=== PATIENT | male | born 1965 | race Asian ===

== ENCOUNTER 2018-05-05 07:55 | Day surgery (SDC) | payer OTHER ==
[2018-05-05] MEDS ORDERED: LACTATED RINGERS 1,000 ML IV ONE (08:40)
[2018-05-05] MEDS ORDERED: MIDAZOLAM 2 MG/2 ML VIAL IVP ONE (09:36)
[2018-05-05] MEDS ORDERED: fentaNYL 250 MCG/5 ML VIAL IVP ONE (09:36)
[2018-05-05 09:55] VITALS: BP 104/70
== END 2018-05-05 07:56 | disposition home or self-care (01) ==
LOC: SDS 07:55
PROVIDERS: ATTEND Surgery
PROC: 0DBN8ZZ Excision of Sigmoid Colon, Via Natural or Artificial Opening Endoscopic (ICD-10-PCS; principal; 2018-05-05 09:00)
DX: Z12.11 Encounter for screening for malignant neoplasm of colon (principal); D12.5 Benign neoplasm of sigmoid colon; K64.8 Other hemorrhoids; Z86.010 Personal history of colon polyps; I10 Essential (primary) hypertension; E11.9 Type 2 diabetes mellitus without complications; Z79.84 Long term (current) use of oral hypoglycemic drugs; Z87.891 Personal history of nicotine dependence
CPT/HCPCS: 45380; J3010; J7120

== ENCOUNTER 2018-12-10 07:15 | Outpatient (CLI) | payer OTHER ==
[2018-12-10 13:21] LABS: BASOPHILS # (AUTO) 0.1 10^3/uL (0.0-0.1); EOSINOPHILS # (AUTO) 0.3 10^3/uL (0.0-0.7); HGB - HEMOGLOBIN 13.5 g/dL (14.0-18.0); LYMPHOCYTES # (AUTO) 1.7 10^3/uL (1.5-3.5); LYMPHOCYTES % (AUTO) 30.1 %; MEAN CORPUSCULAR HEMOGLOBIN 30.6 pg (27.0-31.0); MEAN CORPUSCULAR HGB CONC 32.7 g/dL (32.0-36.0); MEAN CORPUSCULAR VOLUME 93.6 fL (80.0-94.0); MEAN PLATELET VOLUME 8.5 fL (7.4-11.4); MONOCYTES # (AUTO) 0.4 10^3/uL (0.0-1.0); MONOCYTES % (AUTO) 7.3 %; NEUTROPHILS # (AUTO) 3.1 10^3/uL (1.5-6.6); NEUTROPHILS % (AUTO) 54.6 %; PLT - PLATELET COUNT 246 10^3/uL (130-450); RED BLOOD COUNT 4.41 10^6/uL (4.70-6.10); WHITE BLOOD COUNT 5.7 x10^3/uL (4.8-10.8)
[2018-12-10 13:58] LABS: ALBUMIN 4.4 g/dL (3.2-5.5); ALBUMIN/GLOBULIN RATIO 1.3 (1.0-2.2); ALKALINE PHOSPHATASE 62 IU/L (42-121); ALT ALANINE AMINOTRANSFERASE 62 IU/L (10-60); AST ASPARTATE AMINOTRANSFERASE 41 IU/L (10-42); BILIRUBIN,TOTAL 0.8 mg/dL (0.2-1.0); BUN - BLOOD UREA NITROGEN 16 mg/dL (6-20); CALCIUM 9.4 mg/dL (8.5-10.3); CARBON DIOXIDE - CO2 25 mmol/L (21-32); CHLORIDE 104 mmol/L (101-111); CHOL/HDL RATIO 2.5 (<5.0); CHOLESTEROL 119 mg/dL; GFR - MDRD 78 (>89); GLUCOSE 142 mg/dL (70-100); HDL CHOLESTEROL 47 mg/dL; LDL CHOLESTEROL,CALCULATED 51 mg/dL; LDL/HDL RATIO 1.1 (<3.6); SODIUM 139 mmol/L (135-145); TOTAL PROTEIN 7.9 g/dL (6.7-8.2); VLDL CHOLESTEROL 21 mg/dL
[2018-12-10 14:36] LABS: HB2 TOTAL 14.6 g/dL; HEMOGLOBIN A1C 0.73 g/dL; HEMOGLOBIN A1C % 6.7 % (4.6-6.2)
== END 2018-12-10 07:16 | disposition home or self-care (01) ==
LOC: LAB.WCP 07:15
PROVIDERS: ATTEND Family Medicine
DX: I10 Essential (primary) hypertension (principal); E11.9 Type 2 diabetes mellitus without complications; Z12.5 Encounter for screening for malignant neoplasm of prostate
CPT/HCPCS: 36415; 80053; 80061; 82043; 83036; 83721; 84153; 85025

== ENCOUNTER 2019-06-22 08:00 | Outpatient (CLI) | payer OTHER ==
[2019-06-22 14:51] LABS: ALBUMIN 3.7 g/dL (3.2-5.5); ALBUMIN/GLOBULIN RATIO 0.8 (1.0-2.2); BILIRUBIN,TOTAL 0.4 mg/dL (0.2-1.0); CALCIUM 8.8 mg/dL (8.5-10.3); CREATININE 1.1 mg/dL (0.6-1.2); TOTAL PROTEIN 8.2 g/dL (6.7-8.2)
[2019-06-22 15:25] LABS: HB2 TOTAL 12.7 g/dL; HEMOGLOBIN A1C 0.62 g/dL; HEMOGLOBIN A1C % 6.6 % (4.6-6.2)
== END 2019-06-22 23:59 | disposition home or self-care (01) ==
LOC: LAB.WCP 08:00
PROVIDERS: ATTEND Family Medicine
DX: E11.9 Type 2 diabetes mellitus without complications (principal); D12.6 Benign neoplasm of colon, unspecified; L30.9 Dermatitis, unspecified
CPT/HCPCS: 36415; 80053; 83036

== ENCOUNTER 2019-07-27 05:51 | Day surgery (SDC) | payer OTHER ==
[2019-07-27] MEDS ORDERED: LACTATED RINGERS 1,000 ML IV ONE ×2 (06:27→08:58)
[2019-07-27] MEDS ORDERED: ceFAZolin 1 GM VIAL ONE (06:34)
[2019-07-27] MEDS ORDERED: BACITRACIN ZINC OINT 1 PACKET TOP ONE (06:55)
[2019-07-27] MEDS ORDERED: LIDOCAINE 1%-EPI 1:100000 20 ML MDV ONE (06:56)
[2019-07-27] MEDS ORDERED: BUPIVACAINE 0.5% PF 30 ML VIAL ONE (06:56)
--- NOTE | 2019-07-27 07:13 | ANESTHESIA ---
Pre-Anesthesia VS, & Labs - Diagnosis right visual changes and elevated ESR - Procedure right temporal artery biopsy Vital Signs: Temp Pulse Resp BP Pulse Ox 36.3 C L 74 16 109/81 H 100 07/27/19 06:28 07/27/19 06:28 07/27/19 06:28 07/27/19 06:28 07/27/19 06:28 Height 5 ft 7 in Weight (kg) 77.6 kg - NPO >8 hours - Lab Results Current Lab Results: Laboratory Tests 07/27/19 06:42: POC Whole Bld Glucose 140 H Home Medications and Allergies Losartan/Hydrochlorothiazide [Losartan-Hctz 50-12.5 mg Tab] 1 each PO 03/19/13 glipiZIDE [Glucotrol] 5 mg PO 0730 03/19/13 metFORMIN [Glucophage] 850 mg PO TIDWM 03/19/13 Allergies/Adverse Reactions: Allergies Allergy/AdvReac Type Severity Reaction Status Date / Time No Known Drug Allergies Allergy Verified 03/19/13 13:38 Anes History & Medical History - Anesthetic History Family history of Anesthesia Complications: Denies Family history of Malignant Hyperthermia: Denies - Medical History Cardiovascular: reports: Hypertension Pulmonary: reports: None Gastrointestinal: reports: None Urinary: reports: None Neuro: reports: None Musculoskeletal: reports: None Endocrine/Autoimmune: reports: Type 2 diabetes Blood Disorders: reports: None Skin: reports: None Smoking Status: Former smoker Psychosocial: reports: No issues indicated - Surgical History General: Colonoscopy Exam General: Alert, Oriented x3, Cooperative, No acute distress Dental: Dentures full Upper Mouth Openin Fingerbreadth Neck Mobility: Normal Mallampati classification: II Thyromental Distance: greater than 6 cm Respiratory: Lungs clear, Normal breath sounds, No respiratory distress, No accessory muscle use Cardiovascular: Regular rate, Normal S1, Normal S2, No murmurs Mental/Cognitive Status: Alert/Oriented X3, Normal for patient Plan Anesthesia Type: MAC Consent for Procedure(s) Verified and Reviewed: Yes Code Status: Attempt Resuscitation ASA classification: 2-Mild systemic disease Is this case an emergency?: No
[2019-07-27] MEDS ORDERED: PROPOFOL 200 MG/20 ML VIAL IVP ONE (07:52)
[2019-07-27] MEDS ORDERED: fentaNYL 100 MCG/2 ML VIAL IVP ONE (07:52)
[2019-07-27] MEDS ORDERED: LIDOCAINE-MPF 2% 5 ML VIAL IM ONE (07:52)
[2019-07-27] MEDS ORDERED: MIDAZOLAM 2 MG/2 ML VIAL IVP ONE (07:52)
[2019-07-27] MEDS ORDERED: LIDOCAINE 1%-EPI 1:100000 20 ML MDV SUBQ ONE (08:16)
[2019-07-27] MEDS ORDERED: BUPIVACAINE 0.5% PF 30 ML VIAL INFIL ONE (08:17)
--- NOTE | 2019-07-27 09:04 | OPERATIVE REPORT ---
Operative Report - General Procedure Date: 07/27/19 Planned Procedure: Right temporal artery biopsy Pre-Op Diagnosis: Right temporal arteritis Procedure Performed: Right temporal artery biopsy Post Op Diagnosis: Right temporal artery biopsy - Procedure Note Primary Surgeon: Bebo Anesthesia Provider: SAMUEL Villagomez Anesthesia Technique: Local, MAC Pathology: Portion of right temporal artery to pathology IV Fluids (mL): 600 Estimated Blood Loss (mL): 3 Indications: Right temporal arteritis Findings: Thickened and abnormal artery densely adherent to surrounding structures Complications: None apparent - Other Other Information/Narrative: After obtaining informed consent, the patient is brought to the operating room and placed in the supine position on the operating table. Following successful MAC sedation, the right temporal region was prepped and draped in the standard surgical fashion. A timeout was held per scope protocol. All elements of the surgical safety checklist were followed before, during, and after the procedure. The temporal artery was identified lateral to the right eyebrow using a Doppler ultrasound. This was mapped and localized with anesthetic. An incision was created here and carried down through the skin and subcutaneous tissue. An overlying vein was easily identified but we were not able to identify the artery. Extensive searching with the Doppler was undertaken but we were not able to obtain a pulse again or identify clearly and artery. We opted to go back to the source of the artery and look laterally and were able to identify the cephalic branch of the right temporal artery in the patient's hairline on the right side. This area was anesthetized with a mixture of local anesthetics. An incision was created here. This was carried down through the skin and subcutaneous tissue. The artery was identified. It was grossly abnormal. It was densely adherent to surrounding structures it was very difficult to dissect free from the structures. Once we had verified with the Doppler again that it was in fact an artery, it was clipped once proximally once distally divided and a 1 cm segment was submitted for pathology. We were not able to obtain additional specimen due to the degree of fibrotic reaction. The wound was checked for hemostasis. It was closed with a Monocryl suture and Dermabond was applied to the skin. The lower incision was also closed with Dermabond and Monocryl suture. All sponge, needle, and instrument counts were correct at the conclusion of the case. The patient was allowed to awaken from anesthesia and taken to the postanesthesia care unit in good condition.
[2019-07-27] MEDS ORDERED: ACETAMINOPHEN 325 MG TABLET PO ONE (09:20)
[2019-07-27] MEDS ORDERED: oxyCODONE 5 MG TABLET ONE (09:20)
[2019-07-27 10:09] VITALS: BP 106/75
== END 2019-07-27 05:52 | disposition home or self-care (01) ==
LOC: SDS 05:51
PROVIDERS: ATTEND Surgery
PROC: 03BS0ZX Excision of Right Temporal Artery, Open Approach, Diagnostic (ICD-10-PCS; principal; 2019-07-27 07:30)
DX: M31.6 Other giant cell arteritis (principal); H53.40 Unspecified visual field defects; R51 Headache; R70.0 Elevated erythrocyte sedimentation rate; I10 Essential (primary) hypertension; E11.9 Type 2 diabetes mellitus without complications; Z79.84 Long term (current) use of oral hypoglycemic drugs; Z87.891 Personal history of nicotine dependence
CPT/HCPCS: 37609; A9270; J7120

== ENCOUNTER 2019-07-28 09:10 | Outpatient (CLI) | payer OTHER | END 2019-07-28 23:59 | disposition home or self-care (01) | LOC: LAB.WCP 09:10 | PROVIDERS: ATTEND Family Medicine | DX: M31.6 Other giant cell arteritis (principal) | CPT/HCPCS: 36415; 85651 ==

== ENCOUNTER 2019-09-03 08:00 | Outpatient (CLI) | payer OTHER | END 2019-09-03 23:59 | disposition home or self-care (01) | LOC: LAB.WCP 08:00 | PROVIDERS: ATTEND Family Medicine | DX: H53.139 Sudden visual loss, unspecified eye (principal) | CPT/HCPCS: 36415; 85651 ==

== ENCOUNTER 2019-12-23 07:28 | Outpatient (CLI) | payer OTHER ==
[2019-12-23 11:49] LABS: BASOPHILS # (AUTO) 0.1 10^3/uL (0.0-0.1); EOSINOPHILS # (AUTO) 0.2 10^3/uL (0.0-0.7); EOSINOPHILS % (AUTO) 4.1 %; HGB - HEMOGLOBIN 13.7 g/dL (14.0-18.0); LYMPHOCYTES # (AUTO) 1.7 10^3/uL (1.5-3.5); MEAN CORPUSCULAR HGB CONC 31.7 g/dL (32.0-36.0); MEAN CORPUSCULAR VOLUME 94.7 fL (80.0-94.0); MEAN PLATELET VOLUME 10.2 fL (7.4-11.4); MONOCYTES # (AUTO) 0.5 10^3/uL (0.0-1.0); MONOCYTES % (AUTO) 9.2 %; NEUTROPHILS # (AUTO) 2.6 10^3/uL (1.5-6.6); NEUTROPHILS % (AUTO) 51.5 %; PLT - PLATELET COUNT 259 10^3/uL (130-450); RED BLOOD COUNT 4.56 10^6/uL (4.70-6.10); RED CELL DISTRIBUTION WIDTH 12.6 % (12.0-15.0); WHITE BLOOD COUNT 5.1 x10^3/uL (4.8-10.8)
[2019-12-23 12:08] LABS: ALBUMIN 4.3 g/dL (3.2-5.5); ALBUMIN/GLOBULIN RATIO 1.2 (1.0-2.2); ALKALINE PHOSPHATASE 68 IU/L (42-121); ALT ALANINE AMINOTRANSFERASE 69 IU/L (10-60); AST ASPARTATE AMINOTRANSFERASE 38 IU/L (10-42); BILIRUBIN,TOTAL 0.6 mg/dL (0.2-1.0); BUN - BLOOD UREA NITROGEN 20 mg/dL (6-20); CARBON DIOXIDE - CO2 28 mmol/L (21-32); CHLORIDE 102 mmol/L (101-111); CHOL/HDL RATIO 2.6 (<5.0); CHOLESTEROL 136 mg/dL; CREATININE 1.1 mg/dL (0.6-1.2); GLUCOSE 157 mg/dL (70-100); HDL CHOLESTEROL 53 mg/dL; LDL CHOLESTEROL,CALCULATED 65 mg/dL; LDL/HDL RATIO 1.2 (<3.6); SODIUM 137 mmol/L (135-145); TOTAL PROTEIN 7.8 g/dL (6.7-8.2); VLDL CHOLESTEROL 18 mg/dL
[2019-12-23 12:14] LABS: HB2 TOTAL 14.2 g/dL; HEMOGLOBIN A1C 0.79 g/dL; HEMOGLOBIN A1C % 7.2 % (4.6-6.2)
[2019-12-23 12:43] LABS: CREATININE,URINE 146.3 mg/dL; MICROALBUM/CREATININE RATIO,UR 2.7 ug/mg (<30.0); MICROALBUMIN,URINE 0.4 mg/dL (0-300.0)
== END 2019-12-23 23:59 | disposition home or self-care (01) ==
LOC: LAB.WCP 07:28
PROVIDERS: ATTEND Family Medicine
DX: I10 Essential (primary) hypertension (principal); E11.9 Type 2 diabetes mellitus without complications; R94.5 Abnormal results of liver function studies; K76.0 Fatty (change of) liver, not elsewhere classified
CPT/HCPCS: 36415; 80053; 80061; 82043; 82570; 83036; 83721; 84443; 85025

== ENCOUNTER 2020-05-16 07:10 | Outpatient (CLI) | payer OTHER ==
[2020-05-16 12:32] LABS: CALCIUM 9.1 mg/dL (8.5-10.3); CREATININE 1.1 mg/dL (0.6-1.2)
[2020-05-16 12:52] LABS: CREATININE,URINE 193.3 mg/dL; MICROALBUM/CREATININE RATIO,UR 4.7 ug/mg (<30.0); MICROALBUMIN,URINE 0.9 mg/dL (0-300.0)
[2020-05-16 13:15] LABS: HEMOGLOBIN A1c% 6.4 % (4.27-6.07)
== END 2020-05-16 07:11 | disposition home or self-care (01) ==
LOC: LAB.WCP 07:10
PROVIDERS: ATTEND Family Medicine
DX: R94.5 Abnormal results of liver function studies (principal); E11.9 Type 2 diabetes mellitus without complications; Z12.5 Encounter for screening for malignant neoplasm of prostate
CPT/HCPCS: 36415; 80048; 82043; 82570; 83036; 84153

== ENCOUNTER 2020-05-30 15:42 | Outpatient (CLI) | payer OTHER ==
[2020-05-30] MEDS ORDERED: IOVERSOL 320 100 ML VIAL IVP ONE (16:14)
--- NOTE | 2020-05-30 16:41 | CT Report ---
PROCEDURE: SOFT TISSUE NECK W INDICATIONS: CERVICAL LYMPHADENOPATHY CONTRAST: IV CONTRAST: Optiray 320 ml: 100 PO CONTRAST: *NO PO CONTRAST TECHNIQUE: After the administration of intravenous contrast, 3.0 mm axial sections acquired from the sella to th e aortic arch. Additional oblique axial 3.0 mm sections acquired through the pharynx. 3 mm thick co george reformats were generated. For radiation dose reduction, the following was used: automated exp osure control, adjustment of mA and/or kV according to patient size. COMPARISON: None. FINDINGS: Image quality: Excellent. Lymph nodes: No enlarged lymph nodes seen throughout the neck. Vessels: Visualized vasculature appears patent. Neck spaces: The oropharynx, nasopharynx, and pharynx demonstrate no mucosal lesions. The vocal cor ds, false vocal cords, pyriform sinuses, epiglottis, vallecula, and tongue base all appear normal. E xtramucosal spaces appear unremarkable. Glands: The parotid and submandibular glands appear normal. The thyroid is normal in size. Miscellaneous: Visualized brain and orbits appear normal. Lung apices appear clear. Superficial so ft tissues appear normal. Note is made of a small calcified granuloma medial left apex. Bones: No suspicious bony lesions. Visualized sinuses and mastoids appear unremarkable. IMPRESSION: There are several scattered small lymph nodes within the cervical soft tissues but no enlarged nodes are found. The salivary glands are normal in enhancement. No ductal dilatation or glandular inflammat ion is seen. Incidental note is made of a small medial left lung apex calcified granuloma within the lung parenchyma. Reviewed by: Mukesh Barbosa MD on 05/30/2020 4:40 PM PST Approved by: Mukesh Barbosa MD on 05/30/2020 4:40 PM PST Station ID: [id number]
[2020-05-30] MEDS: IOVERSOL 320 100 ML VIAL IVP ONE (17:05)
== END 2020-05-30 15:43 | disposition home or self-care (01) ==
LOC: DI 15:42
PROVIDERS: ATTEND Family Medicine
DX: R59.0 Localized enlarged lymph nodes (principal)
CPT/HCPCS: 70491; Q9967

== ENCOUNTER 2020-08-31 08:00 | Outpatient (CLI) | payer OTHER ==
[2020-08-31 13:37] LABS: BASOPHILS # (AUTO) 0.1 10^3/uL (0.0-0.1); BASOPHILS % (AUTO) 1.1 %; EOSINOPHILS # (AUTO) 0.3 10^3/uL (0.0-0.7); EOSINOPHILS % (AUTO) 5.1 %; HGB - HEMOGLOBIN 13.5 g/dL (14.0-18.0); LYMPHOCYTES # (AUTO) 1.9 10^3/uL (1.5-3.5); LYMPHOCYTES % (AUTO) 34.4 %; MEAN CORPUSCULAR HEMOGLOBIN 30.7 pg (27.0-31.0); MEAN CORPUSCULAR HGB CONC 31.8 g/dL (32.0-36.0); MEAN CORPUSCULAR VOLUME 96.4 fL (80.0-94.0); MEAN PLATELET VOLUME 10.1 fL (7.4-11.4); MONOCYTES # (AUTO) 0.5 10^3/uL (0.0-1.0); MONOCYTES % (AUTO) 8.2 %; NEUTROPHILS # (AUTO) 2.8 10^3/uL (1.5-6.6); PLT - PLATELET COUNT 275 10^3/uL (130-450); WHITE BLOOD COUNT 5.5 x10^3/uL (4.8-10.8)
[2020-08-31 13:49] LABS: ALBUMIN 4.4 g/dL (3.2-5.5); ALBUMIN/GLOBULIN RATIO 1.3 (1.0-2.2); ALKALINE PHOSPHATASE 55 IU/L (42-121); ALT ALANINE AMINOTRANSFERASE 63 IU/L (10-60); AST ASPARTATE AMINOTRANSFERASE 35 IU/L (10-42); BILIRUBIN,TOTAL 0.7 mg/dL (0.2-1.0); BUN - BLOOD UREA NITROGEN 15 mg/dL (6-20); CALCIUM 9.1 mg/dL (8.5-10.3); CARBON DIOXIDE - CO2 25 mmol/L (21-32); CHLORIDE 102 mmol/L (101-111); CHOL/HDL RATIO 2.6 (<5.0); CHOLESTEROL 143 mg/dL; GLUCOSE 112 mg/dL (70-100); HDL CHOLESTEROL 54 mg/dL; LDL CHOLESTEROL,CALCULATED 75 mg/dL; LDL/HDL RATIO 1.4 (<3.6); TOTAL PROTEIN 7.8 g/dL (6.7-8.2); VLDL CHOLESTEROL 14 mg/dL
[2020-08-31 14:23] LABS: HEMOGLOBIN A1c% 6.7 % (4.27-6.07)
[2020-08-31 14:35] LABS: CREATININE,URINE 117.1 mg/dL; MICROALBUM/CREATININE RATIO,UR 3.4 ug/mg (<30.0); MICROALBUMIN,URINE 0.4 mg/dL (0-300.0)
== END 2020-08-31 23:59 | disposition home or self-care (01) ==
LOC: LAB.WCP 08:00
PROVIDERS: ATTEND Internal Medicine
DX: I10 Essential (primary) hypertension (principal); E11.9 Type 2 diabetes mellitus without complications; L92.9 Granulomatous disorder of the skin and subcutaneous tissue, unspecified
CPT/HCPCS: 36415; 80053; 80061; 81599; 82043; 82570; 83036; 83721; 84443; 85025; 86480

== ENCOUNTER 2022-01-29 09:12 | Outpatient (CLI) | payer OTHER ==
[2022-01-29 11:44] LABS: CALCIUM 9.6 mg/dL (8.5-10.3); CREATININE 1.1 mg/dL (0.6-1.2); POTASSIUM 4.3 mmol/L (3.5-5.0)
[2022-01-29 12:03] LABS: CREATININE,URINE 224.3 mg/dL; MICROALBUM/CREATININE RATIO,UR 3.6 ug/mg (<30.0); MICROALBUMIN,URINE 0.8 mg/dL (0-300.0)
[2022-01-29 13:05] LABS: ESTIMATED AVERAGE GLUCOSE 143 mg/dL (70-100); HEMOGLOBIN A1c% 6.6 % (4.27-6.07)
== END 2022-01-29 09:13 | disposition home or self-care (01) ==
LOC: LAB.N 09:12
PROVIDERS: ATTEND Internal Medicine
DX: E11.9 Type 2 diabetes mellitus without complications (principal)
CPT/HCPCS: 36415; 80048; 82043; 82570; 83036

== ENCOUNTER 2023-03-23 10:13 | Outpatient (CLI) | payer OTHER ==
[2023-03-23 18:37] LABS: ALBUMIN 4.7 g/dL (3.2-5.5); ALBUMIN/GLOBULIN RATIO 1.4 (1.0-2.2); ALKALINE PHOSPHATASE 69 IU/L (42-121); ALT ALANINE AMINOTRANSFERASE 73 IU/L (10-60); AST ASPARTATE AMINOTRANSFERASE 43 IU/L (10-42); BILIRUBIN,TOTAL 0.5 mg/dL (0.2-1.0); BUN - BLOOD UREA NITROGEN 15 mg/dL (6-20); CALCIUM 9.9 mg/dL (8.5-10.3); CARBON DIOXIDE - CO2 30 mmol/L (21-32); CHLORIDE 103 mmol/L (101-111); CHOL/HDL RATIO 2.1 (<5.0); CHOLESTEROL 111 mg/dL; GFR - MDRD 76 (>89); GLUCOSE 133 mg/dL (74-104); HDL CHOLESTEROL 52 mg/dL; LDL CHOLESTEROL,CALCULATED 41 mg/dL; LDL/HDL RATIO 0.8 (<3.6); POTASSIUM 4.4 mmol/L (3.5-4.5); SODIUM 138 mmol/L (135-145); TRIGLYCERIDES 92 mg/dL (48-352); VLDL CHOLESTEROL 18 mg/dL
[2023-03-23 18:49] LABS: CREATININE,URINE 164.5 mg/dL; MICROALBUM/CREATININE RATIO,UR 7.3 ug/mg (<30.0); MICROALBUMIN,URINE 1.2 mg/dL
[2023-03-23 19:59] LABS: BASOPHILS # (AUTO) 0.1 10^3/uL (0.0-0.1); EOSINOPHILS # (AUTO) 0.1 10^3/uL (0.0-0.7); EOSINOPHILS % (AUTO) 2.3 %; HCT - HEMATOCRIT 42.6 % (42.0-52.0); HGB - HEMOGLOBIN 13.6 g/dL (14.0-18.0); LYMPHOCYTES # (AUTO) 2.3 10^3/uL (1.5-3.5); LYMPHOCYTES % (AUTO) 36.8 %; MEAN CORPUSCULAR HEMOGLOBIN 30.6 pg (27.0-31.0); MEAN CORPUSCULAR HGB CONC 31.9 g/dL (32.0-36.0); MEAN CORPUSCULAR VOLUME 95.7 fL (80.0-94.0); MEAN PLATELET VOLUME 10.4 fL (7.4-11.4); MONOCYTES # (AUTO) 0.5 10^3/uL (0.0-1.0); MONOCYTES % (AUTO) 8.2 %; NEUTROPHILS # (AUTO) 3.2 10^3/uL (1.5-6.6); NEUTROPHILS % (AUTO) 51.5 %; PLT - PLATELET COUNT 267 10^3/uL (130-450); RED BLOOD COUNT 4.45 10^6/uL (4.70-6.10); RED CELL DISTRIBUTION WIDTH 12.3 % (12.0-15.0); WHITE BLOOD COUNT 6.1 x10^3/uL (4.8-10.8)
[2023-03-24 05:21] LABS: ESTIMATED AVERAGE GLUCOSE 163 mg/dL (70-100); HEMOGLOBIN A1c% 7.3 % (4.27-6.07)
== END 2023-03-23 10:14 | disposition home or self-care (01) ==
LOC: LAB.N 10:13
PROVIDERS: ATTEND Internal Medicine
DX: E11.9 Type 2 diabetes mellitus without complications (principal); Z12.5 Encounter for screening for malignant neoplasm of prostate; I10 Essential (primary) hypertension
CPT/HCPCS: 36415; 80053; 80061; 82043; 82570; 83036; 83721; 84153; 85025

== ENCOUNTER 2023-07-03 14:57 | Outpatient (CLI) | payer OTHER | END 2023-07-03 14:58 | disposition home or self-care (01) | LOC: DI 14:57 | PROVIDERS: ATTEND Physician Assistant Medical | DX: G45.3 Amaurosis fugax (principal) | CPT/HCPCS: 93306 ==

== ENCOUNTER 2023-07-11 11:18 | Outpatient (CLI) | payer OTHER ==
--- NOTE | 2023-07-11 12:03 | XRAY Report ---
PROCEDURE: Lumbar Spine 2 View INDICATIONS: NECK AND BACK PAIN TECHNIQUE: 2 views of the lumbar spine were acquired. COMPARISON: None. FINDINGS: Bones: 5 [id number] vertebrae are present. Mild dextrocurvature of the lumbar spine. There are multilevel degenerative changes of the lumbar spine with facet arthropathy and disc height loss with degenerative endplate changes and marginal spurring. No vertebral body compression fractures. No melendez spicious bony lesions. Soft tissues: Overlying bowel gas pattern is normal. No suspicious soft tissue calcifications. IMPRESSION: No vertebral body compression deformities. Mild degenerative changes of the lumbar spine . Reviewed by: Vimal Donato MD on 07/11/2023 12:01 PM PST Approved by: Vimal Donato MD on 07/11/2023 12:01 PM PST Station ID: [id number]
--- NOTE | 2023-07-11 12:08 | XRAY Report ---
PROCEDURE: Cervical Spine 2 View INDICATIONS: NECK AND BACK PAIN TECHNIQUE: 4 view(s) of the cervical spine were acquired. COMPARISON: None. FINDINGS: Bones: No fractures or dislocations to the C7 level. Straightening of the normal cervical lordosis. Multilevel degenerative changes of the cervical spine with facet and uncovertebral arthropathy, disc height loss, endplate degenerative changes and spurring. The lateral masses of C1 appear intact on t he odontoid view. No suspicious bony lesions. Soft tissues: No prevertebral soft tissue swelling. IMPRESSION: No acute fracture or traumatic listhesis. Mild degenerative changes of the cervical spin e. Reviewed by: Vimal Donato MD on 07/11/2023 12:06 PM PST Approved by: Vimal Donato MD on 07/11/2023 12:06 PM PST Station ID: [id number]
== END 2023-07-11 23:59 | disposition home or self-care (01) ==
LOC: DI.N 11:18
PROVIDERS: ATTEND Specialist
DX: M47.812 Spondylosis without myelopathy or radiculopathy, cervical region (principal); M47.816 Spondylosis without myelopathy or radiculopathy, lumbar region

== ENCOUNTER 2023-11-09 09:31 | Outpatient (CLI) | payer OTHER ==
[2023-11-09 18:49] LABS: ESTIMATED AVERAGE GLUCOSE 166 mg/dL (70-100); HEMOGLOBIN A1c% 7.4 % (4.27-6.07)
== END 2023-11-09 09:32 | disposition home or self-care (01) ==
LOC: LAB.N 09:31
PROVIDERS: ATTEND Physician Assistant Medical
DX: E11.9 Type 2 diabetes mellitus without complications (principal)
CPT/HCPCS: 36415; 83036